=== PATIENT | female | born 1990 | race American Indian/Alaskan Native ===

== ENCOUNTER 2018-08-19 12:19 | Emergency (ER) | payer OTHER ==
[2018-08-19 12:53] VITALS: BP 101/63
[2018-08-19] MEDS ORDERED: MOTRIN PO ONE (14:14)
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
--- NOTE | 2018-08-19 15:19 | XRay Report ---
LUMBOSACRAL SPINE, 3 VIEWS: History: Back pain Findings: The vertebral bodies, disk spaces and posterior elements are intact. No compression deformity or malalignment. Mild scoliosis is suspected. The SI joints are symmetric and unremarkable. Impression: No evidence for acute injury to the lumbar spine.
== END 2018-08-19 16:30 | disposition home or self-care (01) ==
LOC: ED 12:19
DX: S13.4XXA Sprain of ligaments of cervical spine, initial encounter (principal); S39.012A Strain of muscle, fascia and tendon of lower back, initial encounter; V49.49XA Driver injured in collision with other motor vehicles in traffic accident, initial encounter; Y93.89 Activity, other specified; Y92.410 Unspecified street and highway as the place of occurrence of the external cause; Y99.8 Other external cause status
CPT/HCPCS: 72040; 72100